=== PATIENT | female | born 1990 | race Caucasian/White ===

== ENCOUNTER 2017-06-12 19:56 | Emergency (ER) | payer BC, OTHER ==
[2017-06-12] MEDS ORDERED: Ibuprofen 800 MG TAB ONE (20:17)
[2017-06-12] MEDS ORDERED: HYDROcodone/Acetaminophen 10/325 mg Tablet ONE (20:17)
[2017-06-12 20:28] LABS: Bilirubin Negative (Negative); Blood, Urine Negative (Negative); Clarity Slightly Cloudy (Clear); Glucose, Urine (Dipstick) Negative (Negative); Leukocyte Negative (Negative); Nitrite Negative (Negative); Protein, Urine (Dipstick) Negative (Neg-Trace)
--- NOTE | 2017-06-12 22:10 | RAD ---
CHEST TWO VIEWS 06/12/17 The heart is normal in size. The mediastinum shows no widening or shift. The lungs are fully inflate d and clear. No infiltrate or effusion was seen. The bony structures appear intact with no gross fra ctures evident. IMPRESSION: No acute thoracic finding. POS: HOME
== END 2017-06-12 20:51 | disposition home or self-care (01) ==
LOC: BURERS 19:56
DX: S30.1XXA Contusion of abdominal wall, initial encounter (principal); S20.219A Contusion of unspecified front wall of thorax, initial encounter; S10.91XA Abrasion of unspecified part of neck, initial encounter; M54.5 Low back pain; V40.5XXA Car driver injured in collision with pedestrian or animal in traffic accident, initial encounter; W22.11XA Striking against or struck by driver side automobile airbag, initial encounter
CPT/HCPCS: 71020; 81003

== ENCOUNTER 2017-08-08 21:43 | Emergency (ER) | payer BC, OTHER ==
[2017-08-08] MEDS ORDERED: Fluorescein Opthalmic Strip ONE ×3 (22:15→22:21)
[2017-08-08] MEDS ORDERED: Ketorolac Tromethamine 30 MG/ML VIAL ONE (22:43)
[2017-08-08] MEDS ORDERED: Metoclopramide HCl 10 MG/2 ML VIAL ONE (22:43)
[2017-08-08] MEDS ORDERED: diphenhydrAMINE 50 MG/ML VIAL ONE (22:43)
== END 2017-08-08 23:17 | disposition home or self-care (01) ==
LOC: BURERS 21:43
DX: G44.009 Cluster headache syndrome, unspecified, not intractable (principal)
CPT/HCPCS: 96374; 96375; J1200; J1885; J2765

== ENCOUNTER 2017-11-25 10:33 | Emergency (ER) | payer BC, MEDICAID, SELFPAY ==
[2017-11-25] MEDS ORDERED: Lidocaine Viscous Sol 2% 15 ml UD Cup ONE (10:53)
[2017-11-25] MEDS ORDERED: Mag-Al Plus 1200 MG/1200 MG/120 MG/30 ML UDCUP ONE (10:53)
[2017-11-25 10:55] LABS: #Eosinphils 0.1 thou/uL (0.0-0.7); #Lymphocytes 1.5 thou/uL (1.20-3.40); #Monocytes 0.4 thou/uL (0.11-0.59); %Basophils 0.6 % (0.0-1.0); %Eosinophils 0.7 % (0.0-10.0); %Lymphocytes 18.6 % (21.0-51.0); %Monocytes 5.4 % (0.0-10.0); %Neutrophils 74.6 % (42.0-75.0); Hemoglobin 12.8 g/dL (12.0-16.0); Mean Corpuscular HGB CONC 35.5 g/dL (32.0-36.0); Mean Corpuscular Hemoglobin 29.2 pg (27.0-31.0); Mean Corpuscular Volume 82.3 fl (81.0-99.0); Mean Platelet Volume 7.1 fL (7.4-10.4); Platelet Count 292 thou/uL (130-400); RBC Distribution Width 12.7 % (11.5-14.5); Red Blood Cell (RBC) Count 4.39 mill/uL (4.20-5.40); White Blood Cell (WBC) Count 8.1 thou/uL (4.8-10.8)
[2017-11-25 11:14] LABS: CKMB 0.6 ng/mL (0-6.6); Troponin I Less than 0.010 ng/mL (< 0.028)
[2017-11-25 11:22] LABS: ALT (SGPT) 25 U/L (8-55); AST (SGOT) 16 U/L (5-34); Albumin 3.6 g/dL (3.5-5.0); Alkaline Phosphatase 61 U/L (40-150); Anion Gap 14 mmol/L (10-20); BUN (Urea Nitrogen) 8 mg/dL (7.0-18.7); Bilirubin, Total 0.5 mg/dL (0.2-1.2); CK (CPK) 36 U/L (29-168); Calc. Creatinine Clearance 0 mL/min (70-130); Calcium 9.4 mg/dL (7.8-10.44); Chloride 104 mmol/L (98-107); Estimated GFR-MDRD Greater than 90; Globulin 3.8 g/dL (2.4-3.5); Glucose 68 mg/dL (70-105); Lipase 54 U/L (8-78); Potassium 3.9 mmol/L (3.5-5.1); Protein, Total 7.4 g/dL (6.0-8.3); Sodium 137 mmol/L (136-145)
[2017-11-25 11:39] LABS: Carbon Dioxide 23 mmol/L (22-29)
[2017-11-25] MEDS ORDERED: diphenhydrAMINE 50 MG/ML VIAL ONE (12:04)
[2017-11-25] MEDS ORDERED: Metoclopramide HCl 10 MG/2 ML VIAL ONE (12:04)
[2017-11-25 14:13] LABS: Troponin I Less than 0.010 ng/mL (< 0.028)
== END 2017-11-25 14:28 | disposition home or self-care (01) ==
LOC: BURERS 10:33
DX: O99.89 Other specified diseases and conditions complicating pregnancy, childbirth and the puerperium (principal); R07.89 Other chest pain; O30.002 Twin pregnancy, unspecified number of placenta and unspecified number of amniotic sacs, second trimester; O99.352 Diseases of the nervous system complicating pregnancy, second trimester; G43.909 Migraine, unspecified, not intractable, without status migrainosus; Z3A.14 14 weeks gestation of pregnancy
CPT/HCPCS: 36415; 80053; 82550; 82553; 83690; 84484; 85025; 93005; 94760; 96365; 96375; J1200; J2765

== ENCOUNTER 2018-11-30 20:14 | Emergency (ER) | payer MEDICAID, OTHER ==
[2018-11-30] MEDS ORDERED: Cephalexin 500 MG CAP ONE (21:19)
[2018-11-30] MEDS ORDERED: Dexamethasone 4 MG TAB ONE (21:19)
== END 2018-11-30 21:20 | disposition home or self-care (01) ==
LOC: BURERS 20:14
DX: L25.0 Unspecified contact dermatitis due to cosmetics (principal); G43.909 Migraine, unspecified, not intractable, without status migrainosus
CPT/HCPCS: 99283; J8540